=== PATIENT | male | born 1990 | race Two or more races ===

== ENCOUNTER 2023-10-06 12:48 | Emergency (ER) | payer SELFPAY ==
[~2023-10-06] VITALS: Ht 175.3 cm; Wt 71.2 kg
[2023-10-06 13:13] VITALS: BP 129/83; PULSE 83; RESP 18; O2SAT 96
== END 2023-10-06 16:47 | disposition left against medical advice (07) ==
LOC: ER 12:48
DX: M54.59 Other low back pain (principal); Z53.21 Procedure and treatment not carried out due to patient leaving prior to being seen by health care provider

== ENCOUNTER 2023-10-10 08:24 | Emergency (ER) | payer SELFPAY ==
[~2023-10-10] VITALS: Ht 175.3 cm; Wt 82.0 kg
[2023-10-10 08:50] LABS: Basophils # (auto) 0.1 10 ^3/uL (0-0.2); Basophils % (auto) 0.7 % (0.0-2.0); Eosinophils # (auto) 0.3 10 ^3/uL (0-0.8); Eosinophils % (auto) 2.6 % (0.0-7.0); Hematocrit 43.6 % (41.0-53.0); Hemoglobin 14.3 g/dL (13.5-17.5); Lymphocytes # (auto) 2.5 10 ^3/uL (0.4-5.4); Lymphocytes % (auto) 25.4 % (10.0-50.0); Mean Corpuscular Hemoglobin 28.2 pg (28.0-32.0); Mean Corpuscular Hgb Conc. 32.8 g/dL (32.0-36.0); Mean Corpuscular Volume 85.9 fL (80.0-100.0); Monocytes # (auto) 0.4 10 ^3/uL (0-1.3); Monocytes % (auto) 3.9 % (0.0-12.0); Neutrophils # (auto) 6.5 10 ^3/uL (1.6-8.6); Neutrophils % (auto) 67.4 % (37.0-80.0); Red Blood Cells 5.08 10^6/uL (4.5-5.90); Red Cell Distribution Width 13.5 % (11.8-14.3); White Blood Cell 9.7 10^3/uL (4.4-10.8)
[2023-10-10 09:07] LABS: Alanine Aminotransferase 15 U/L (7-40); Albumin 4.4 g/dL (3.2-4.8); Alkaline Phosphatase 87 U/L (46-116); Anion Gap 4 (5-15); Aspartate Aminotransferase 15 U/L (13-40); BUN/Creatinine Ratio 11.2 (10.0-20.0); Bilirubin, Total 0.5 mg/dL (0.2-1.0); Blood Urea Nitrogen 10 mg/dL (9-23); Calcium 9.2 mg/dL (8.7-10.4); Carbon Dioxide 31 mmol/L (20-30); Chloride 106 mmol/L (98-107); Glucose 117 mg/dL (74-106); Potassium 4.2 mmol/L (3.5-5.1); Sodium 141 mmol/L (136-145)
[2023-10-10 09:08] LABS: Acetaminophen < 2.0 UG/ML (10.0-20.0); Total Protein 7.1 g/dL (5.7-8.2)
[2023-10-10 09:14] LABS: Salicylate < 3.0 mg/dL (2.8-20.0)
[2023-10-10 09:29] LABS: Urine Bacteria NONE SEEN /hpf (None Seen); Urine Blood Negative /uL (Negative); Urine Clarity Clear (Clear); Urine Color Yellow (Yellow); Urine Mucus FEW (None Seen); Urine Protein, UAD Negative (Negative); Urine Specific Gravity 1.027 (1.001-1.035); Urine Urobilinogen Normal (Negative); Urine WBC <1 /hpf (0 - 3); Urine pH 5.5 (5.0-8.0)
[2023-10-10 09:47] LABS: Amphetamine Screen, Urine Neg (NEGATIVE); Barbiturate Scree,Urine Neg (NEGATIVE); Benzodiazephine Screen, Urine Neg (NEGATIVE); Cannabinoid Screen, Urine Pos (NEGATIVE); Cocaine Screen, Urine Neg (NEGATIVE); Opiate Scree,Urine Neg (NEGATIVE); Phencyclidine Screen, Urine Neg (NEGATIVE)
[2023-10-10] MEDS: HALOPERIDOL 5 MG TAB PO SCH ×2 (17:30→22:00)
[2023-10-10 19:30] VITALS: O2SAT 96
[2023-10-11 09:22] VITALS: RESP 18
[2023-10-11] MEDS: HALOPERIDOL 5 MG TAB PO SCH ×2 (11:23→22:30)
[2023-10-11 20:00] VITALS: PULSE 91; RESP 16; O2SAT 98
[2023-10-12] MEDS: HALOPERIDOL 5 MG TAB PO SCH ×2 (10:27→21:52)
[2023-10-12 20:25] VITALS: PULSE 89; RESP 18; O2SAT 99
[2023-10-13] MEDS: HALOPERIDOL 5 MG TAB PO SCH ×2 (10:19→21:57)
[2023-10-13] MEDS ORDERED: LORazepam 0.5 MG TAB PO ONE (16:30)
[2023-10-13] MEDS ORDERED: ONDANSETRON ODT 4 MG TAB PO ONE (21:45)
[2023-10-13] MEDS ORDERED: ONDANSETRON ODT 4 MG TAB ONE (21:53)
[2023-10-13] MEDS ORDERED: HALOPERIDOL 5 MG TAB ONE (21:55)
[2023-10-13 23:37] VITALS: BP 139/89; PULSE 86; RESP 16; TEMP 97.8; O2SAT 100
== END 2023-10-14 00:02 | disposition left against medical advice (07) ==
LOC: ER 08:24
DX: F20.9 Schizophrenia, unspecified (principal); F31.9 Bipolar disorder, unspecified
CPT/HCPCS: 36415; 80053; 80164; 80307; 80329; 81001; 85025